=== PATIENT | female | born 1970 | race Two or more races ===

== ENCOUNTER 2021-05-20 09:41 | Emergency (ER) | payer OTHER ==
[~2021-05-20] VITALS: Ht 160 cm; Wt 100.0 kg
[2021-05-20] MEDS ORDERED: DEXAMETHASONE SOD PHOS 20 MG/5 ML VIAL. IV ONE (10:00)
[2021-05-20] MEDS ORDERED: PROCHLORPERAZINE 10 MG/2 ML VIAL. IV ONE (10:00)
[2021-05-20] MEDS ORDERED: diphenhydrAMINE 50 MG/ML VIAL IVP ONE (10:00)
[2021-05-20] MEDS ORDERED: KETOROLAC 30 MG/ML VIAL. IVP ONE (10:00)
[2021-05-20 10:15] LABS: BASO # 0.1 x10^3/uL (0.0-0.2); BASO % 1 % (0-3); EOS # 0.1 x10^3/uL (0.0-0.7); EOS % 2 % (0-3); HEMATOCRIT 43.8 % (36.0-47.0); HEMOGLOBIN 14.4 g/dL (12.0-15.5); LYMPH # 2.3 x10^3/uL (1.0-4.8); LYMPH % 38 % (24-48); MEAN CORPUSCULAR HEMOGLOBIN 30 pg (25-35); MEAN CORPUSCULAR HGB CONC 33 g/dL (31-37); MEAN CORPUSCULAR VOLUME 92 fL (79-100); MONO # 0.5 x10^3/uL (0.0-1.1); MONO % 9 % (0-9); NEUT # 3.1 x10^3/uL (1.8-7.7); NEUT % 51 % (31-73); PLATELET COUNT 254 x10^3/uL (140-400); RED BLOOD COUNT 4.75 x10^6/uL (3.50-5.40); RED CELL DISTRIBUTION WIDTH 13.6 % (11.5-14.5)
--- NOTE | 2021-05-20 10:22 | PHYS DOC ---
Past Medical History Past Surgical History: No Surgical History General Adult EDM: Chief Complaint: HEADACHE HPI: HPI: Patient is a 50 year old female who presents with left sided headache for the last 5 days. She states there is intermittent dizziness. She states been trying Advil and Tylenol but is not helping. She states she has had a headache like this in the past. Patient does state that the headache came on suddenly and then states that this is the worst headache she is ever had. She states she does have some nausea and some tingling in the fingers in the left hand. She denies fall, head injury, LOC, vomiting, abdominal pain, fever, neck pain, urinary symptoms, chest pain, shortness of air, focal weakness, vision change, numbness. Her history is headache and hypertension. She states that she takes lisinopril 10 mg but did not take it today. Review of Systems: Review of Systems: Constitutional: Denies fever or chills. [] Eyes: Denies change in visual acuity. [] HENT: Denies nasal congestion or sore throat. [] Respiratory: Denies cough or shortness of breath. [] Cardiovascular: Denies chest pain or edema. [] GI: Denies abdominal pain, +nausea, denies vomiting, bloody stools or diarrhea. [] : Denies dysuria. [] Musculoskeletal: Denies back pain or joint pain. [] Integument: Denies rash. [] Neurologic: + headache, denies focal weakness or + tingling left fingers sensory changes. + Intermittent dizziness [] Endocrine: Denies polyuria or polydipsia. [] Lymphatic: Denies swollen glands. [] Psychiatric: Denies depression or anxiety. [] Heart Score: C/O Chest Pain: No Current Medications: Current Medications Medications (Trade) Dose Ordered Sig/Janet Start Time Stop Time Status Last Admin Dose Admin Dexamethasone Sodium Phosphate (Decadron) 10 mg 1X ONCE 05/20/21 10:00 05/20/21 10:01 DC Diphenhydramine HCl (Benadryl) 25 mg 1X ONCE 05/20/21 10:00 05/20/21 10:01 DC Ketorolac Tromethamine (Toradol 30mg Vial) 30 mg 1X ONCE 05/20/21 10:00 05/20/21 10:01 DC Prochlorperazine Edisylate (Compazine) 10 mg 1X ONCE 05/20/21 10:00 05/20/21 10:01 DC Allergies: Allergies: Allergies Coded Allergies Type Severity Reaction Last Updated Verified No Known Drug Allergies 05/20/21 No Physical Exam: PE: Constitutional: Well developed, well nourished, no acute distress, non-toxic appearance. [] HENT: Normocephalic, atraumatic, bilateral external ears normal, oropharynx moist, no oral exudates, nose normal. [] Eyes: PERRLA, EOMI, conjunctiva normal, no discharge. [] Neck: Normal range of motion, no tenderness, supple, no stridor. [] Cardiovascular:Heart rate regular rhythm, no murmur [] Lungs & Thorax: Bilateral breath sounds clear to auscultation [] Abdomen: Bowel sounds normal, soft, no tenderness, no masses, no pulsatile masses. [] Skin: Warm, dry, no erythema, no rash. [] Back: No tenderness, no CVA tenderness. [] Extremities: No tenderness, no cyanosis, no clubbing, ROM intact, no edema. [] Neurologic: Alert and oriented X 3, normal motor function, normal sensory function, no focal deficits noted. [] Psychologic: Affect normal, judgement normal, mood normal. [] Normal physical exam Current Patient Data: Vital Signs: Vital Signs Date Time Temp Pulse Resp B/P (MAP) Pulse Ox O2 Delivery O2 Flow Rate FiO2 05/20/21 09:45 98.3 83 21 168/113 (131) 99 Room Air 98.3 EKG: EK and read by Dr. Garcia as sinus rhythm and no STEMI Radiology/Procedures: Radiology/Procedures: [] Impression: [facility] [address] [place], [place] [id number] IMAGING REPORT Signed PATIENT: KALEIGH GONZALEZACCOUNT: [id number] : 1970 LOCATION: ER AGE: 50 SEX: F EXAM STATUS: REG ER ORD. PHYSICIAN: ALANNA GLEASON APRN REASON: worst headache she has ever felt PROCEDURE: CT HEAD WO CONTRAST EXAM: Head CT without contrast. HISTORY: Worst headache of life. TECHNIQUE: Computed tomographic images of the head were obtained without contrast. *One or more of the following individualized dose reduction techniques were utilized for this examination: 1. Automated exposure control. 2. Adjustment of the mA and/or kV according to patient size. 3. Use of iterative reconstruction technique. COMPARISON: None. FINDINGS: There is no acute or subacute extra-axial or intraparenchymal hemorrhage. There is no mass effect or midline shift. There is no hydrocephalus. There are small nonspecific subtle areas of decreased aeration within the cerebral white matter. The visualized portions of the paranasal sinuses and mastoid air cells are unremarkable. There is calcification within the superior medial left orbit associated with the trochlea. This is typically a benign senescent finding or associated with diabetes. No suspicious calvarial lesion is seen. IMPRESSION: 1. No acute intracranial finding. Note is made that MRI is more sensitive for acute infarction. 2. Subtle nonspecific areas of decreased attenuation within the cerebral white matter, a component of which may be artifactual. The possibility of changes due to chronic small vessel disease or chronic consolidation is not excluded in a patient of this age. This can be better assessed with MRI if clinically indicated. Electronically signed by: Camille King MD (05/20/2021 11:29 AM) [id number] DICTATED and SIGNED BY: CAMILLE KING MD DATE: 05/20/21 [id number] Course & Med Decision Making: Course & Med Decision Making Pertinent Labs and Imaging studies reviewed. (See chart for details) See HPI. Alert and oriented x4. Ambulatory steady gait. Skin pink warm and dry. [id number]-stvgfy intact. No nystagmus. PERRLA. Speaks in full clear sentences. Moving all extremities. Full strengths. Lungs are clear to all stational lobes. Vital signs are within normal limits. After medication given, patient states she is feeling much better. [] Dragon Disclaimer: Dragon Disclaimer: This electronic medical record was generated, in whole or in part, using a voice recognition dictation system. NIHSS Stroke Scale NIH Stroke Scale: NIH Stroke Scale Response (Comments) Value Level of Consciousness: 0 Alert/Responsive 0 LOC Questions: 0 Answers both correctly 0 LOC Commands: 0 Performs both tasks 0 Best Gaze: 0 Normal 0 Visual: 0 No visual loss 0 Facial Palsy: 0 Normal, symmetrical 0 Motor - Left Arm 0 No drift 0 Motor - Right Arm 0 No drift 0 Motor - Left Leg 0 No drift 0 Motor: Right Leg 0 No drift 0 Limb Ataxia: 0 Absent 0 Sensory: 1 Mid to moderate loss 1 Best Language: 0 Normal 0 Dysathria: 0 Normal 0 Extinction and Inattention: 0 Normal 0 Total 1 Departure Departure Impression: Primary Impression: Headache Qualified Codes: R51.9 - Headache, unspecified Disposition: 01 HOME / SELF CARE / HOMELESS Condition: STABLE Referrals: OCTAVIANO MEIER MD Patient Instructions: Migraine Headache Additional Instructions: Follow up with primary care or the Neurologist I have referred you too. Drink plenty of fluids. If your headache returns and is severe or you has numbness, vision change, begin vomiting, or focal weakness, return tot ED. ALANNA GLEASON APRN May 20, 2021 10:22
[2021-05-20 10:30] LABS: CALCIUM 8.6 mg/dL (8.5-10.1); CREATININE 0.7 mg/dL (0.6-1.0); GFR 88.6; POTASSIUM 4.3 mmol/L (3.5-5.1)
[2021-05-20 10:37] LABS: ALBUMIN 3.6 g/dL (3.4-5.0); ALBUMIN/GLOBULIN RATIO 0.9 (1.0-1.7); MAGNESIUM 2.1 mg/dL (1.8-2.4); TOTAL BILIRUBIN 0.3 mg/dL (0.2-1.0); TOTAL PROTEIN 7.6 g/dL (6.4-8.2)
[2021-05-20 11:07] LABS: BILIRUBIN,URINE NEGATIVE (NEG); CLARITY,URINE CLEAR; COLOR,URINE YELLOW; NITRITE,URINE NEGATIVE (NEG); PROTEIN,URINE NEGATIVE (NEG-TRACE); UROBILINOGEN,URINE 0.2 mg/dL (0.2 mg/dL)
[2021-05-20 11:27] LABS: BACTERIA,URINE FEW /HPF (0-FEW)
--- NOTE | 2021-05-20 11:32 | RAD ---
EXAM: Head CT without contrast. HISTORY: Worst headache of life. TECHNIQUE: Computed tomographic images of the head were obtained without contrast. *One or more of the following individualized dose reduction techniques were utilized for this examina tion: 1. Automated exposure control. 2. Adjustment of the mA and/or kV according to patient size. 3. Use of iterative reconstruction technique. COMPARISON: None. FINDINGS: There is no acute or subacute extra-axial or intraparenchymal hemorrhage. There is no mass effect or midline shift. There is no hydrocephalus. There are small nonspecific subtle areas of decreased aeration within the cerebral white matter. The visualized portions of the paranasal sinuses and mastoid air cells are unremarkable. There is adilson cification within the superior medial left orbit associated with the trochlea. This is typically a be nign senescent finding or associated with diabetes. No suspicious calvarial lesion is seen. IMPRESSION: 1. No acute intracranial finding. Note is made that MRI is more sensitive for acute infarction. 2. Subtle nonspecific areas of decreased attenuation within the cerebral white matter, a component of which may be artifactual. The possibility of changes due to chronic small vessel disease or chronic consolidation is not excluded in a patient of this age. This can be better assessed with MRI if clini lane indicated. Electronically signed by: Camille Posada MD (05/20/2021 11:29 AM) [id number]
[2021-05-20 11:45] VITALS: BP 154/98
--- NOTE | 2021-05-21 06:38 | EKG ---
[facility] [address] [place] [address] Test Date: 2021-05-20 Test Time: 10:09:53 Pat Name: KALEIGH GONZALEZ Department: Room: Gender: F [employer]: : 1970 Requested By: ALANNA GLEASON Order Number: [id number] Reading MD: Measurements Intervals [place] Rate: 77 P: -2 TN: 158 QRS: 11 QRSD: 76 T: 32 QT: 384 QTc: 436 Interpretive Statements SINUS RHYTHM OTHERWISE NORMAL ECG RI6.02 No previous ECG available for comparison
== END 2021-05-20 11:50 | disposition home or self-care (01) ==
LOC: ER 09:41
DX: R51.9 Headache, unspecified (principal); R42 Dizziness and giddiness; R11.0 Nausea; I10 Essential (primary) hypertension
CPT/HCPCS: 36415; 70450; 80053; 81001; 81025; 83735; 84484; 85025; 93005; 96374; 96375; 99285; J0780; J1100; J1200; J1885